=== PATIENT | male | born 1995 | race Caucasian/White ===

== ENCOUNTER 2019-12-11 01:42 | Emergency (ER) | payer MEDICAID ==
[~2019-12-11] VITALS: Ht 167.6 cm; Wt 76.0 kg
[2019-12-11 02:23] VITALS: BP 127/72
== END 2019-12-11 05:00 | disposition home or self-care (01) ==
LOC: ER 01:42
DX: S03.03XA Dislocation of jaw, bilateral, initial encounter (principal); F17.210 Nicotine dependence, cigarettes, uncomplicated; F12.10 Cannabis abuse, uncomplicated; X58.XXXA Exposure to other specified factors, initial encounter; Y93.89 Activity, other specified; Y92.018 Other place in single-family (private) house as the place of occurrence of the external cause
CPT/HCPCS: 21480; 70486; 93005; 99284

== ENCOUNTER 2020-06-21 16:10 | Emergency (ER) | payer MEDICAID ==
[~2020-06-21] VITALS: Ht 180.3 cm; Wt 59.0 kg
[2020-06-21] MEDS ORDERED: HYDROCODONE/ACETAMINOPHEN 5/325MG TABLET PO STA (17:09)
[2020-06-21 17:32] VITALS: BP 143/67
[2020-06-21] MEDS ORDERED: IBUP-2029 PO (18:08)
== END 2020-06-21 18:51 | disposition home or self-care (01) ==
LOC: ER 16:10
DX: S67.22XA Crushing injury of left hand, initial encounter (principal); X58.XXXA Exposure to other specified factors, initial encounter; Y93.89 Activity, other specified; Y92.89 Other specified places as the place of occurrence of the external cause; Y99.8 Other external cause status
CPT/HCPCS: 29125; 73130; 99283

== ENCOUNTER 2021-03-31 15:48 | Emergency (ER) | payer MEDICAID ==
[~2021-03-31] VITALS: Ht 180.3 cm; Wt 59.0 kg
[~2021-03-31 15:48] MED LIST: IBUP-2029 PO
[2021-03-31 15:56] VITALS: BP 141/78
[2021-03-31] MEDS ORDERED: PENICILLIN G BENZATHINE 2,400,000 UNITS/4ML SYR IM ONE (17:30)
[2021-03-31] MEDS ORDERED: PERM60CR4 TP (17:39)
== END 2021-03-31 18:23 | disposition home or self-care (01) ==
LOC: ER 15:48
DX: R21 Rash and other nonspecific skin eruption (principal); F12.10 Cannabis abuse, uncomplicated
CPT/HCPCS: 86592; 96372; 99283; J0561